=== PATIENT | female | born 1985 | race Caucasian/White ===

== ENCOUNTER 2017-01-29 10:58 | Inpatient (IN) | payer OTHER ==
[2017-01-29] VITALS (21 sets, daily range): BP systolic 118–176; BP diastolic 82–102; PULSE 64–102; RESP 18–20; TEMP 98.3–98.4
[~2017-01-29] VITALS: Ht 170.2 cm; Wt 77.1 kg
[~2017-01-29 10:58] MED LIST: PREN1CHW7 PO
--- NOTE | 2017-01-29 11:15 | PD ---
HPI Chief Complaint elevated BP and protein in urine Date Seen: Jan 29, 2017 Time Seen: 11:14 (Uma Noland MD R1) Travel History International Travel<30 Days: No Contact w/Intl Traveler<30Days: No (Uma Noland MD R1) History of Present Illness HPI Patient is a 31 year old at 27 and 5/7 weeks gestation by first trimester ultrasound, FUAD 04/25/2017, who presents [facility] OB ED from [facility] for elevated blood pressure and proteinuria. She is asymptomatic. She denies leakage of fluid, vaginal bleeding, and contractions. She feels baby moving regularly. She denies VALLE/N/V/D/fever/sick contacts/SOB/calf pain/dizziness/seeing spots. OB care is with [facility]. (Uma Noland MD R1) History Past Medical History Medical History: Denies Significant Hx (Uma Noland MD R1) Past Surgical History Surgical History: No Previous Surgery (Uma Noland MD) Family History Family History: Negative (Uma Noland MD) Social History Alcohol Use: No Tobacco Use: Yes (half a pack per day) Substance Abuse: No (Uma Noland MD R1) Allergies-Medications (Allergen,Severity, Reaction): Coded Allergies: No Known Allergies (Unverified , 01/29/17) Home Meds Active Scripts Vit W/ Fe Polysacch C (Vitafol Ultra 29-0.6-0.4-200 mg)1 Cap Cap Sample #2 Prov:Delilah Garcia 10/07/16 Discontinued Scripts Vit W/ Ferric Phospha (Vitafol Gummies 3.33-0.333-34.8 mg)1 Chw Chw3 Tab PO DAILY #90 BOTTLE Ref 11 Prov:Delilah Garcia 10/07/16 Review of Systems Except as stated in HPI: all other systems reviewed are Neg (Uma Noland MD R1) Physical Exam Narrative GENERAL: Well-nourished, well-developed female in no apparent distress SKIN: Warm and dry. No rashes. HEAD: Normocephalic and atraumatic. EYES: No scleral icterus. No injection or drainage. ENT: No nasal drainage noted. Mucous membranes pink. Airway patent. NECK: Supple, trachea midline. No JVD. CARDIOVASCULAR: Regular rate and rhythm without murmurs, gallops, or rubs. RESPIRATORY: Breath sounds equal bilaterally. No accessory muscle use. ABDOMEN/GI: Abdomen soft, gravid, non-tender, bowel sounds present, no rebound, no guarding GENITOURINARY: Deferred. FHT's: Note that patient is aT 27 and 5 weeks gestation Category: 2 Baseline: 150 Reactive: no Variability: min Decels: absent EXTREMITIES: No cyanosis or edema. BACK: Nontender without obvious deformity. No CVA tenderness. NEUROLOGICAL: Awake and alert. Cranial nerves are intact. No photosensitivity. EOMI. Motor and sensory grossly within normal limits. Five out of 5 muscle strength in all muscle groups. Normal speech. Reflexes 1+ in the patellae bilaterally. No clonus. (Uma Noland MD R1) Data Data Vital Signs Reviewed: Yes (Serial BPs 156/90, 146/90, 150/90) (Uma Noland MD R1) MDM Medical Record Reviewed: Yes Narrative Course / MDM 31-year-old at 27 and 5/7 weeks gestation who presents from [facility] for elevated blood pressure and proteinuria. Intrauterine : Category 2 tracing, consistent with gestational age Monitor heart tones Routine care Hypertension in : Suspect mild pre-eclampsia Patient is completely asymptomatic Exam is unremarkable, noted for normal neurologic exam without abnormal reflexes or clonus Baseline BP is 110s/60s per EMR BP noted to be 146/112 in office Serial BPs today showing BP 156/90, 146/90, 150/90, 146/96, pulse 69-102 Plan is to rule out preeclampsia: CBC, CMP, urinalysis, uric acid, urine protein /creatinine ratio If labs within normal limits, will discharge home with recommendation for close f/u and further evaluation Information about signs of PreE and labor given to patient Will need 24hr urine protein, US for assess growth, close monitoring with serial NSTs Tobacco use complicating Discussed with Dr. Garcia (Uma Noland MD R1) Diagnosis Diagnosis: Primary Impression: Hypertension affecting in second trimester Collaborating MD Comments Patient with severe preeclampsia most likely. Will complete work up with sonogram.. Possible need for transfer of care due to prematurity (Gretchen Garcia MD) Uma Noland MD R1 Jan 29, 2017 11:15 Gretchen Garcia MD Jan 30, 2017 09:19
[2017-01-29] MEDS ORDERED: NIFEdipine 10 MG CAP PO SCH (11:45)
[2017-01-29 12:29] LABS: MEAN CELL VOLUME 88.7 FL (80.0-100.0); MEAN CORPUSCULAR HEMOGLOBIN 31.1 PG (27.0-34.0); MEAN CORPUSCULAR HGB CONC 35.1 % (32.0-36.0); PLATELET COUNT 186 TH/MM3 (150-450); RED BLOOD COUNT 4.28 MIL/MM3 (4.00-5.30); RED CELL DISTRIBUTION WIDTH 13.4 % (11.6-17.2); REVIEW FLAG FINAL; WHITE BLOOD COUNT 8.3 TH/MM3 (4.0-11.0)
[2017-01-29] MEDS ORDERED: LACTATED RINGER'S 1000 ML INJ 1,000 ML IV SCH (12:32)
[2017-01-29] MEDS ORDERED: LABETALOL HCL 100 MG/20 ML VIAL ONE (12:33)
[2017-01-29 12:34] LABS: BACTERIA, URINE MOD /hpf; BLOOD, URINE SMALL (NEG); COMMENT (UR) CULTURE INDICATED; CULTURE IF INDICATED CULTURE INDICATED; GLUCOSE,URINE NEG (NEG); KETONE, URINE NEG (NEG); NITRITE,URINE NEG (NEG); SQUAMOUS EPITHELIAL CELL URINE 2 /hpf (0-5); URINE COLOR LIGHT-YELLOW (YELLW/STRAW)
[2017-01-29] MEDS ORDERED: MAGNESIUM SULFATE 40 GM PREMIX 1,000 ML IV SCH ×2 (12:36→14:43)
[2017-01-29] MEDS ORDERED: MAGNESIUM SULFATE 4 GM PREMIX 100 ML IV ONE ×2 (12:45→14:45)
[2017-01-29] MEDS ORDERED: LABETALOL HCL 100 MG/20 ML VIAL IV PUSH PRN ×5 (12:45→15:00)
[2017-01-29] MEDS ORDERED: SODIUM CHLORIDE 0.9% FLUSH 5 ML FLUSH IV PRN (12:45)
[2017-01-29 12:54] LABS: ALKALINE PHOSPHATASE 137 U/L (45-117); TOTAL BILIRUBIN ADULT 0.1 MG/DL (0.2-1.0)
[2017-01-29 12:55] LABS: ALT (GPT) 18 U/L (10-53); ANION GAP 9 MEQ/L (5-15); AST (GOT) 19 U/L (15-37); BICARBONATE 22.9 MEQ/L (21.0-32.0); BLOOD UREA NITROGEN 11 MG/DL (7-18); CHLORIDE 108 MEQ/L (98-107); GLOMERULAR FILTRATION RATE 174 ML/MIN (>89); POTASSIUM 3.8 MEQ/L (3.5-5.1); SODIUM (NA) 140 MEQ/L (136-145); URIC ACID 4.4 MG/DL (2.6-6.0)
--- NOTE | 2017-01-29 12:58 | HHI.HP ---
History & Physical H&P HPI Chief Complaint elevated BP and protein in urine Date Seen: Jan 29, 2017 Time Seen: 11:14 Travel History International Travel<30 Days: No Contact w/Intl Traveler<30Days: No History of Present Illness HPI Patient is a 31 year old at 27 and 5/7 weeks gestation by first trimester ultrasound, FUAD 04/25/2017, who presents to [facility] OB ED from [facility] for elevated blood pressure and proteinuria. She is asymptomatic. She denies leakage of fluid, vaginal bleeding, and contractions. She feels baby moving regularly. She denies VALLE/N/V/D/fever/sick contacts/SOB/calf pain/dizziness/seeing spots. OB care is with [facility]. History (Limited) History Past Medical History Medical History: Denies Significant Hx Past Surgical History Surgical History: No Previous Surgery Family History Family History: Negative Social History Alcohol Use: No Tobacco Use: Yes (half a pack per day) Substance Abuse: No Allergies-Medications Allergies-Medications (Allergen,Severity, Reaction): Coded Allergies: No Known Allergies (Unverified , 01/29/17) Home Meds Active Scripts Vit W/ Fe Polysacch C (Vitafol Ultra 29-0.6-0.4-200 mg)1 Cap Cap Sample #2 Prov:Delilah Garcia 10/07/16 Discontinued Scripts Vit W/ Ferric Phospha (Vitafol Gummies 3.33-0.333-34.8 mg)1 Chw Chw3 Tab PO DAILY #90 BOTTLE Ref 11 Prov:Delilah Garcia 10/07/16 ROS Review of Systems Except as stated in HPI: all other systems reviewed are Neg Physical Exam Physical Exam Narrative GENERAL: Well-nourished, well-developed female in no apparent distress SKIN: Warm and dry. No rashes. HEAD: Normocephalic and atraumatic. EYES: No scleral icterus. No injection or drainage. ENT: No nasal drainage noted. Mucous membranes pink. Airway patent. NECK: Supple, trachea midline. No JVD. CARDIOVASCULAR: Regular rate and rhythm without murmurs, gallops, or rubs. RESPIRATORY: Breath sounds equal bilaterally. No accessory muscle use. ABDOMEN/GI: Abdomen soft, gravid, non-tender, bowel sounds present, no rebound, no guarding GENITOURINARY: Deferred. FHT's: Note that patient is aT 27 and 5 weeks gestation Category: 2 Baseline: 150 Reactive: no Variability: min Decels: absent EXTREMITIES: No cyanosis or edema. BACK: Nontender without obvious deformity. No CVA tenderness. NEUROLOGICAL: Awake and alert. Cranial nerves are intact. No photosensitivity. EOMI. Motor and sensory grossly within normal limits. Five out of 5 muscle strength in all muscle groups. Normal speech. Reflexes 1+ in the patellae bilaterally. No clonus. Data Data Data Vital Signs Reviewed: Yes (Serial BPs 156/90, 146/90, 150/90) MDM MDM Medical Record Reviewed: Yes Narrative Course / MDM 31-year-old at 27 and 5/7 weeks gestation who presents from [facility] for elevated blood pressure and proteinuria. Intrauterine : Category 2 tracing, consistent with gestational age Monitor heart tones Routine care Hypertension in : Suspect mild pre-eclampsia, will admit for observation. Patient asymptomatic, exam unremarkable Baseline BP is 110s/60s per EMR, BP 146/112 in office today Serial BPs ranging 140-171/90-100, pulse 69-102 CBC wnl CMP pending UA significant for 30 protein Labetalol PRN elevated blood pressures Obtain 24hr urine protein and creatinine US for growth Close monitoring with serial NSTs Tobacco use complicating dw Dr. Garcia and Sallie Arellano MD R2 Jan 29, 2017 12:58
[2017-01-29] MEDS ORDERED: MAGNESIUM SULFATE 4 GM PREMIX 100 ML ONE (13:01)
[2017-01-29] MEDS ORDERED: CALCIUM GLUCONATE 10% 1 GM/10 ML VIAL IV PUSH PRN (14:45)
[2017-01-29] MEDS ORDERED: ACETAMINOPHEN 325 MG TAB PO PRN (15:00)
[2017-01-29] MEDS ORDERED: ONDANSETRON ODT 4 MG TAB PO PRN (15:00)
[2017-01-29] MEDS ORDERED: DOCUSATE SODIUM 100 MG CAP PO PRN (15:00)
[2017-01-29] MEDS ORDERED: BETAMETHASONE SOD PHOS/ACETATE SUSP 30 MG/5 ML VIAL IM SCH (15:00)
--- NOTE | 2017-01-29 15:21 | HHI.PR ---
SQL ANALYST Note Note Patient seen and care reviewed. [id number] seen at [facility] for regular care visit today. Blood pressure was 146/112, 140/110 in office. Patient was seen here, labs sent, and sonogram performed 1. Severe pre-eclampsia at [id number] - Normotensive in 1st and 2nd trimester based on her documentation. s/p labetolol 20mg IV for blood pressure control, Magnesium sulfate bolus then 2gm/hr. No abnormalities seen in maternal bloodwork. Protein/Creatinine ratio 5.43 2. IUGR - DOUGIE 6, absent end diastolic flow noted. Middle Cerebral Artery 0.9 3. Normal anatomy scan at 20 weeks but difficult to visualize the anterior abdominal wall well on today's scan. Echogenic bowel Plan transfer to Level 3 once blood pressure is stable and reassuring tracing. Gretchen Garcia MD Jan 29, 2017 15:21
[2017-01-29] MEDS: LABETALOL HCL 100 MG/20 ML VIAL IV PUSH PRN ×2 (15:38→16:25)
[2017-01-29] MEDS ORDERED: SODIUM CHLORIDE 0.9% FLUSH 5 ML FLUSH IV SCH (21:00)
[2017-01-30] MEDS ORDERED: MULTIVIT/MIN/PREN/FOL AC/IRON PRENATAL TAB PO SCH (09:00)
== END 2017-01-29 17:00 | disposition short-term general hospital (02) | DRG 781 ==
LOC: HOBED 10:58 → H2EB 13:19 → OBSVTOIN 15:58
PROVIDERS: ADMIT Obstetrics & Gynecology Obstetrics; ATTEND Obstetrics & Gynecology Obstetrics
DX: O14.12 Severe pre-eclampsia, second trimester (principal); F17.210 Nicotine dependence, cigarettes, uncomplicated; Z3A.27 27 weeks gestation of pregnancy; O99.332 Smoking (tobacco) complicating pregnancy, second trimester
CPT/HCPCS: 76816; 76819; 76820; 76821; 80053; 81001; 82570; 84156; 84550; 85027; 87086; J0702; J3475; J7120